=== PATIENT | female | born 1980 | race Caucasian/White ===

== ENCOUNTER 2018-07-21 20:30 | Emergency (ER) | payer SELFPAY ==
[~2018-07-21] VITALS: Ht 165.1 cm; Wt 63.6 kg
[2018-07-21 20:34] VITALS: TEMP 99.8
[2018-07-21 21:29] LABS: BASO # 0.1 (0.0-0.2); BASO % 0.3 % (0.0-2.0); EOS % 0.1 % (0-4.0); GRAN # 14.3 (1.4-6.5); GRAN % 83.2 % (42.2-75.2); HEMATOCRIT 41.1 % (37.0-47.0); HEMOGLOBIN 13.6 g/dl (12.5-16.0); LYMPH # 1.6 (1.2-3.4); LYMPH % 9.3 % (20.0-51.0); MEAN CELL VOLUME 92 fl (80.0-100.0); MEAN CORPUSCULAR HEMOGLOBIN 30 pg (27.0-31.0); MEAN CORPUSCULAR HGB CONC 33 g/dl (33.0-37.0); MEAN PLATELET VOLUME 10.6 fl (7.4-10.4); MONO # 1.1 (0.1-0.6); MONO % 6.6 % (1.7-9.3); PLATELET COUNT 384 K/mm3 (130-400); RED BLOOD COUNT 4.47 M/mm3 (4.10-5.30); REDCELL DISTRIBUTION WIDTH-CV 13.7 % (11.5-14.5)
[2018-07-21 21:40] LABS: ALBUMIN 4.2 gm/dL (3.5-5.0); BILIRUBIN,TOTAL 0.7 mg/dL (0.0-1.0); CALCIUM 9.1 mg/dL (8.4-10.2); CREATININE, serum 0.7 mg/dL (0.52-1.25); POTASSIUM 3.7 mmol/L (3.4-5.0); TOTAL PROTEIN 7.8 gm/dL (6.4-8.2)
[2018-07-21 22:23] LABS: COLLECTION METHOD CLEAN CATCH
[2018-07-21 22:31] LABS: PH 6 (5-8); URINE APPEARANCE Cloudy; URINE BACTERIA Rare /hpf; URINE BILIRUBIN Negative (NEGATIVE); URINE BLOOD Negative (NEGATIVE); URINE COLOR Yellow; URINE GLUCOSE Negative (NEGATIVE); URINE KETONE 1+ (NEGATIVE); URINE LEUKOCYTE ESTERASE Negative (NEGATIVE); URINE NITRATE Positive (NEGATIVE); URINE PROTEIN(semi-quant) 1+ (NEGATIVE); URINE RBC 0-2 /hpf
[2018-07-21 23:22] VITALS: BP 117/78; PULSE 67
== END 2018-07-21 23:30 | disposition home or self-care (01) ==
LOC: COL.ER 20:30
PROVIDERS: Emergency Medicine
DX: B34.9 Viral infection, unspecified (principal); D72.829 Elevated white blood cell count, unspecified; F17.210 Nicotine dependence, cigarettes, uncomplicated
CPT/HCPCS: A4216; J0696; J2765; J3010; J7030

== ENCOUNTER 2018-11-25 08:40 | Emergency (ER) | payer SELFPAY ==
[~2018-11-25] VITALS: Ht 167.6 cm; Wt 56.8 kg
[2018-11-25 08:45] VITALS: TEMP 97.9
[2018-11-25 09:13] LABS: COLLECTION METHOD CLEAN CATCH
[2018-11-25 09:16] LABS: BASO # 0.1 (0.0-0.2); BASO % 0.6 % (0.0-2.0); EOS # 0.4 (0.0-0.7); EOS % 4.6 % (0-4.0); GRAN # 5.9 (1.4-6.5); GRAN % 65.9 % (42.2-75.2); HEMATOCRIT 38.7 % (37.0-47.0); HEMOGLOBIN 12.7 g/dl (12.5-16.0); LYMPH # 1.8 (1.2-3.4); LYMPH % 20.3 % (20.0-51.0); MEAN CELL VOLUME 91 fl (80.0-100.0); MEAN CORPUSCULAR HEMOGLOBIN 30 pg (27.0-31.0); MEAN CORPUSCULAR HGB CONC 33 g/dl (33.0-37.0); MEAN PLATELET VOLUME 10.6 fl (7.4-10.4); MONO # 0.8 (0.1-0.6); MONO % 8.4 % (1.7-9.3); PLATELET COUNT 372 K/mm3 (130-400); RED BLOOD COUNT 4.27 M/mm3 (4.10-5.30); REDCELL DISTRIBUTION WIDTH-CV 13.4 % (11.5-14.5)
[2018-11-25 09:19] LABS: PH 5 (5-8); SQUAMOUS EPITHELIAL 0-2 /hpf; URINE APPEARANCE Hazy; URINE BACTERIA Rare /hpf; URINE BILIRUBIN Negative (NEGATIVE); URINE BLOOD 2+ (NEGATIVE); URINE COLOR Yellow; URINE GLUCOSE Negative (NEGATIVE); URINE KETONE Negative (NEGATIVE); URINE LEUKOCYTE ESTERASE Negative (NEGATIVE); URINE NITRATE Negative (NEGATIVE); URINE PROTEIN(semi-quant) Negative (NEGATIVE); URINE RBC 0-2 /hpf; URINE UROBILINOGEN Negative (NEGATIVE)
[2018-11-25 12:43] VITALS: BP 125/89; PULSE 69
[2018-11-25] MEDS ORDERED: FLAGYL500 MG PO (12:50)
== END 2018-11-25 12:55 | disposition home or self-care (01) ==
LOC: COL.ER 08:40
PROVIDERS: Nurse Practitioner
DX: O46.8X1 Other antepartum hemorrhage, first trimester (principal); O26.891 Other specified pregnancy related conditions, first trimester; O99.331 Smoking (tobacco) complicating pregnancy, first trimester; R10.2 Pelvic and perineal pain; F17.210 Nicotine dependence, cigarettes, uncomplicated; Z3A.00 Weeks of gestation of pregnancy not specified; Z98.51 Tubal ligation status

== ENCOUNTER 2019-05-26 09:07 | Emergency (ER) | payer SELFPAY ==
[~2019-05-26] VITALS: Ht 165.1 cm; Wt 68.2 kg
[~2019-05-26 09:07] MED LIST: FLAGYL500 MG PO
[2019-05-26 09:15] VITALS: TEMP 97.7
[2019-05-26] MEDS ORDERED: NORCO 325 MG-51 TAB PO (10:54)
[2019-05-26 11:24] VITALS: BP 137/97; PULSE 69
== END 2019-05-26 11:24 | disposition home or self-care (01) ==
LOC: COL.ER 09:07
DX: S20.212A Contusion of left front wall of thorax, initial encounter (principal); F17.210 Nicotine dependence, cigarettes, uncomplicated; Z98.51 Tubal ligation status; W22.8XXA Striking against or struck by other objects, initial encounter
CPT/HCPCS: A9284

== ENCOUNTER 2020-02-19 20:13 | Emergency (ER) | payer SELFPAY ==
[~2020-02-19] VITALS: Ht 165.1 cm; Wt 56.8 kg
[~2020-02-19 20:13] MED LIST changes: +NORCO 325 MG-51 TAB PO
[2020-02-19 20:28] VITALS: BP 137/68; TEMP 98.4
[2020-02-19 21:13] VITALS: PULSE 62
== END 2020-02-19 21:13 | disposition home or self-care (01) ==
LOC: COL.ER 20:13
DX: M54.12 Radiculopathy, cervical region (principal); F17.200 Nicotine dependence, unspecified, uncomplicated
CPT/HCPCS: J3301

== ENCOUNTER 2021-06-17 16:26 | Emergency (ER) | payer SELFPAY ==
[~2021-06-17] VITALS: Ht 167.6 cm; Wt 59.1 kg
[2021-06-17] MEDS ORDERED: CRUTCHES MC (18:00)
[2021-06-17 18:27] VITALS: BP 141/81; PULSE 69; TEMP 98.1
== END 2021-06-17 18:27 | disposition home or self-care (01) ==
LOC: COL.ER 16:26
DX: S93.401A Sprain of unspecified ligament of right ankle, initial encounter (principal); S70.02XA Contusion of left hip, initial encounter; F17.200 Nicotine dependence, unspecified, uncomplicated; Z98.890 Other specified postprocedural states; W10.8XXA Fall (on) (from) other stairs and steps, initial encounter; X50.1XXA Overexertion from prolonged static or awkward postures, initial encounter; Y99.0 Civilian activity done for income or pay
CPT/HCPCS: J1885